=== PATIENT | male | born 1975 | race Hispanic/Latino ===

== ENCOUNTER → 2020-11-05 | Outpatient (CLI) | payer OTHER | END | disposition home or self-care (01) | LOC: RAH 09:55 | PROVIDERS: ATTEND Orthopaedic Surgery | DX: I07.1 Rheumatic tricuspid insufficiency (principal); R55 Syncope and collapse; E66.9 Obesity, unspecified; R07.89 Other chest pain | CPT/HCPCS: 93306 ==